=== PATIENT | female | born 1975 | race Hispanic/Latino ===

== ENCOUNTER → 2024-05-06 | Outpatient (CLI) | payer OTHER ==
--- NOTE | 2024-05-06 15:14 | HMCSR ---
APPROVED REPORT EXAM: Two-dimensional and M-mode echocardiogram with Doppler and color Doppler. INDICATION ICD: R06.00 Dyspnea 2D Dimensions RVDd3.6 cmLVEF(%)65.2 (>50%)LVED Vol(simp.)121.0 mL IVSd0.8 (0.7-1.1cm)FS(%)36 %LVES Vol(simp.)58.0 mL LVDd5.3 (3.8-5.6cm)Ao Root(2D)2.7 (2.0-3.7cm)LVEF(%, simp.)53 % PWd0.9 (0.7-1.1cm)LVOT diam2.0 (1.8-2.4cm)LA ESV INDEX (BP)29.18 mL/m2 LVDs3.4 (2.5-4.0cm)IVC diam1.6 cm Aortic Valve AoV Vmax1.7 m/Ma[place] Peak GR11.3 mmHgLVOT Vmax1.0 m/s AoV VTI0.4 mAo Mean GR6.4 mmHgLVOT VTI0.22 m KARSON (VMAX)1.8 cm2AVA (VTI) 1.8 cm2 Mitral Valve MV E Vmax79.8 cm/sDECEL Trau525 ms MV A Vmax90.8 cm/sP 1/2 T61 ms E/A ratio0.9MVA (PHT)3.6 cm2 MR Max PG76 mmHg TDI E/E' Medial7.5E/E' Lateral6.6 Pulmonary Valve PV Vmax1.2 m/sPV VTI0.27 mPV Mean GR3 mmHg PV Peak GR5.5 mmHgPI End Keisha. Kleber 0.9 cm/s Tricuspid Valve TR Vmax2.4 m/sRAP (EST) 3 exOuVPTU13.5 mmHg TR Peak GR22.5 mmHg Left Ventricle The left ventricle structure and function is normal. There is normal LV segmental wall motion. There is normal left ventricular wall thickness. LVEF is 55-60%. Grade 1 diastolic dysfunction Right Ventricle The right ventricle is normal size. The right ventricular systolic function is normal. Atria The left atrium size is normal. The right atrium size is normal. Aortic Valve Aortic valve is trileaflet. Aortic valve leaflets are sclerotic but open well. Trace aortic regurgita tion. There is no aortic valvular stenosis. Mitral Valve Mitral valve leaflets are mildly sclerotic but open well. Mitral regurgitation is trace. There is no mitral valve stenosis. Tricuspid Valve The tricuspid valve leaflets appear normal. There is trace tricuspid regurgitation. Pulmonic Valve Pulmonic valve is not well visualized. There is trace pulmonic valvular regurgitation. Great Vessels The aortic root is normal in size. The IVC is normal in size and collapses >50% with inspiration. Pericardium Trace pericardial effusion. Conclusion LVEF is 55-60%. Grade 1 diastolic dysfunction Aortic valve is trileaflet. Aortic valve leaflets are sclerotic but open well. There is no aortic valvular stenosis.
== END | disposition home or self-care (01) ==
LOC: SHCH 11:09
PROVIDERS: ATTEND Internal Medicine Cardiovascular Disease
DX: I08.0 Rheumatic disorders of both mitral and aortic valves (principal); R06.00 Dyspnea, unspecified
CPT/HCPCS: 93306

== ENCOUNTER → 2024-05-08 | Outpatient (CLI) | payer OTHER | END | disposition home or self-care (01) | LOC: RAH 13:26 → EDUNIT# 13:30 | PROVIDERS: ATTEND Internal Medicine Cardiovascular Disease | DX: Z13.6 Encounter for screening for cardiovascular disorders (principal) | CPT/HCPCS: 75571 ==